=== PATIENT | male | born 1970 | race Caucasian/White ===

== ENCOUNTER 2022-12-31 09:36 | Day surgery (SDC) | payer OTHER, BC, SELFPAY ==
[2022-12-31] VITALS (7 sets, daily range): BP systolic 122–131; BP diastolic 85–96; PULSE 61–67; RESP 16; TEMP 36.3–36.4; O2SAT 95–97; BMI 34.4
[2022-12-31] MEDS: lidocaine HCL 2 % MULTIDOSE 20 ML VIAL INJECTION (10:35)
[2022-12-31] MEDS: BUPIVACAINE 0.5% 30 ML INJECTION (10:35)
[2022-12-31] MEDS: ETHYL CHLORIDE 1 APPLICATION 1 APPLIC TOPICAL (10:35)
--- NOTE | 2022-12-31 10:49 | SUR.PREOP ---
SAME DAY SURGERY LOCAL INJECTION SITE VERIFICATION WAS PERFORMED BY SURGEON/PA AND PATIENT PRIOR TO LOCAL ANESTHETIC BEING INJECTED TO OPERATIVE SITE.
--- NOTE | 2022-12-31 11:05 | PM.ORPRC ---
Procedure Note Date of procedure: 12/31/22 Procedure: PREOPERATIVE DIAGNOSIS: 1. Left index finger radial aspect near the tip benign mass POSTOPERATIVE DIAGNOSIS: 1. Left index finger radial aspect near the tip benign mass (suspected epidermal inclusion cyst) PROCEDURE: 1. Left index finger benign mass open excision SURGEON: Julio César Plummer MD. CLARIFICATION OPERATOR: Kylie Monroe PA-C - Of note, an perinatal breastfeeding assistant was critical for this case to aid in patient positioning, tissue retraction, limb manipulation/positioning, patient safety, & closure. ANESTHESIA: Local anesthetic (50:50 mixture of 2% lidocaine plain and 0.5% marcaine plain)-10 mL total digital block EBL: 1 mL IMPLANTS: None TOURNIQUET: 8 minutes digital tourni-cot COMPLICATIONS: None evident INDICATIONS: The patient is a pleasant 52-year-old male who has sustained a left index finger work related injury in the remote past. This required a flap to cover exposed distal phalanx tuft bone at that time. Since, he has had slight decreased root sensation on the radial aspect the digit, but he more recently has noticed a growth forming over the radial aspect of the index finger tip. 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 That was a work related injury, and I do think that this is related to that same event. I do believe this is an epidermal inclusion cyst from that experience. Given the pain/discomfort and failure of nonoperative management, surgery was indicated for benign mass open excision. DESCRIPTION OF PROCEDURE: Following a thorough discussion of risks, benefits, and alternatives consent was obtained and the operative extremity was marked. The patient was brought to the operating room and placed supine on the operating table. No antibiotics were administered as this was planned to be a local case only. Proper time-out was performed identifying proper patient, site, and procedure. The operative extremity was prepped and draped in the appropriate sterile fashion using ChloraPrep. The limb was exsanguinated and the tourniquet inflated. A longitudinal incision was made over the radial aspect of the index finger near the tip. Sharp incision through skin allowed us to immediately encounter some white, chalky like, somewhat circumscribed benign mass. It was not large enough or unified enough to be a complete specimen worthy of sending to pathology. Instead, it was in tiny chalky pieces that were removed primarily with a curette but secondarily with a rongeur. This was immediately deep to the skin and within the subcutaneous fat layer of the finger. The incision measured approximately 5mm. After confirming firm growth to be excised completely, nylon suture 4-0 was utilized for closure in simple fashion. Thorough irrigation normal saline was 1st performed. The digital tourni-cot was removed and healthy bleeding/good capillary refill was encountered. Dressings were applied. The patient was woken per Anesthesia transferred to the recovery room in stable condition. PLAN: 1. Encourage elevation of the operative extremity. 2. Range of motion of the operative extremity/digits as tolerated. 3. Ibuprofen, acetaminophen and/or oxycodone as needed for pain. 4. Follow up with PA visit in 12-16 days for wound check and suture removal.
== END 2022-12-31 11:42 | disposition home or self-care (01) ==
PROVIDERS: PCP Family Medicine; Visit Provider Orthopaedic Surgery Sports Medicine
PROC: (CPT 11420; principal; 2022-12-31 10:45)
DX: R22.32 Localized swelling, mass and lump, left upper limb (principal)
CPT/HCPCS: 11420; J0665